=== PATIENT | female | born 1950 | race Caucasian/White ===

== ENCOUNTER 2023-03-10 10:02 | Emergency (ER) | payer OTHER ==
[~2023-03-10] VITALS: Ht 162.6 cm; Wt 70.8 kg
[2023-03-10 10:29] VITALS: BP_SYST 199
[2023-03-10] MEDS ORDERED: LABETALOL HCL 20 MG/4 ML CARTRIDGE IVP ONE (10:45)
--- NOTE | 2023-03-10 10:52 | NUR ---
PT BIB SELF AWAKE AND ALERT AOX4, NO SOB OR DISTRESS. PT C/O ABDOMINAL PAIN X3 DAYS, 07/26. PT DENIES N/V. PT HAS HX OF DM2, HTN, HLD.
--- NOTE | 2023-03-10 10:54 | NUR ---
PT TO CT SCAN
--- NOTE | 2023-03-10 10:54 | NUR ---
MD DR KOENIG AT BEDSIDE
--- NOTE | 2023-03-10 11:25 | NUR ---
[place] of care received, pt A&Ox4, VSS, respirations even and unlabored, no N/V noted at this time, denies pain at this time, will cont to monitor.
[2023-03-10 11:28] LABS: BASOPHILS % (AUTO) 0.5 % (0.0-2.0); EOSINOPHILS # (AUTO) 0.1 K/uL (0.0-0.4); EOSINOPHILS % (AUTO) 0.8 % (0.0-4.0); HEMATOCRIT 41.9 % (36-48); HEMOGLOBIN 14.2 g/dL (12.0-16.0); LYMPHOCYTES # (AUTO) 1.6 K/uL (1.0-5.5); LYMPHOCYTES % (AUTO) 19.6 % (20.5-51.5); MEAN CORPUSCULAR HEMOGLOBIN 29 pg (27-31); MEAN CORPUSCULAR HGB CONC 34 % (32-36); MEAN CORPUSCULAR VOLUME 86 fL (79.0-98.0); MONOCYTES # (AUTO) 0.6 K/uL (0.0-1.0); MONOCYTES % (AUTO) 6.7 % (1.7-9.3); NEUTROPHILS # (AUTO) 6.1 K/uL (1.8-7.7); NEUTROPHILS % (AUTO) 72.4 % (40.0-70.0); PLATELET COUNT (AUTO) 185 K/uL (130-430); RED BLOOD CELL COUNT(AUTO) 4.86 MIL/uL (4.2-6.2); RED CELL DISTRIBUTION WIDTH 15.3 % (9.0-15.0); WHITE BLOOD COUNT (AUTO) 8.4 K/uL (4.8-10.8)
[2023-03-10 11:35] LABS: CALCIUM 9.3 mg/dL (8.4-11.0); CREATININE 0.73 mg/dL (0.55-1.30)
[2023-03-10 11:40] LABS: ALBUMIN 3.6 g/dL (3.4-4.8); TOTAL BILIRUBIN 0.4 mg/dL (0.0-1.0)
--- NOTE | 2023-03-10 13:48 | NUR ---
Pt c/o abd pain 05/25 , Dr Pickens notified
[2023-03-10] MEDS ORDERED: MORPHINE 4 MG INJ. 4 MG/ML VIAL IVP ONE (14:15)
[2023-03-10] MEDS ORDERED: PANTOPRAZOLE SODIUM 40 MG/VIAL (PROTONIX) IVP ONE (14:15)
--- NOTE | 2023-03-10 14:28 | NUR ---
Pt medicated for pain as ordered, well tolerated.
[2023-03-10] MEDS ORDERED: TRAM50TA2 PO (15:05)
[2023-03-10] MEDS ORDERED: OMEP20CA15 PO (15:05)
[2023-03-10 15:40] VITALS: BP_SYST 152
--- NOTE | 2023-03-10 15:42 | NUR ---
Patient given written and verbal discharge instructions and verbalizes understanding. ER MD discussed with patient the results and treatment provided. Patient in stable condition. ID arm band removed. IV catheter removed intact and dressing applied, no active bleeding. Rx of tramadol and omeprazole given. Patient educated on pain management and to follow up with PMD. Pain Scale 0/10 Opportunity for questions provided and answered. Medication side effect fact sheet provided. patient aox4 able to ambulate with no assistance with steady gait.
== END 2023-03-10 15:42 | disposition home or self-care (01) ==
LOC: SED 10:02
DX: K52.9 Noninfective gastroenteritis and colitis, unspecified (principal); R10.12 Left upper quadrant pain; E78.5 Hyperlipidemia, unspecified; I10 Essential (primary) hypertension; Z79.899 Other long term (current) drug therapy
CPT/HCPCS: 99285; 74176; 96374; 71045; 96375; 80053; 83880; 85025; 84484; 36415; 93005; 76376; C9113; J2270